=== PATIENT | female | born 1955 | race Caucasian/White ===

== ENCOUNTER 2017-11-04 08:08 | Outpatient (CLI) | payer OTHER | END 2017-11-04 08:10 | disposition home or self-care (01) | LOC: SONOGRAMA 08:08 | DX: E04.1 Nontoxic single thyroid nodule (principal) ==

== ENCOUNTER 2018-06-02 07:54 | Outpatient (CLI) | payer OTHER | END 2018-06-02 07:56 | disposition home or self-care (01) | LOC: SONOGRAMA 07:54 | DX: E04.1 Nontoxic single thyroid nodule (principal) ==

== ENCOUNTER 2018-09-26 07:09 | Outpatient (CLI) | payer OTHER | END 2018-09-26 07:23 | disposition home or self-care (01) | LOC: NUCLEAR 07:09 | DX: E04.1 Nontoxic single thyroid nodule (principal) | CPT/HCPCS: 78013; A9512 ==